=== PATIENT | male | born 1965 | race Caucasian/White ===

== ENCOUNTER → 2024-03-21 | Outpatient (CLI) | payer MEDICARE, SELFPAY ==
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
--- NOTE | 2024-03-21 15:00 | XR_ITS ---
Examination: CT chest, without intravenous contrast. Sagittal and coronal 2-D reconstructions. Exam date and time: March 21, 2024 1529 hours Comparison August 07, 2023 INDICATIONS: Smoking history 50 years, tiny nodules in the left lung, the largest 3 mm CTDI:vol (mGy) 11 DLP: (mGycm) 417 Technique: Multiple 3.0 mm axial sections of the chest to been obtained. Bone and lung density settings are obtained. Sagittal and coronal 2-D reconstructions have been obtained. Low dose protocols were performed. One or more of the following dose reduction techniques were used; automated exposure control, adjustment of the mA and/or KV according to patient size, use of iterative reconstruction technique. Findings: No thoracic aortic aneurysm dilatation Pulmonary artery segments are not enlarged Mild calcification left anterior descending left circumflex coronary arteries No pulmonary nodules on the current study No pneumonia or pulmonary edema or pleural disease No liver or splenic lesion Contracted gallbladder No pancreatic or adrenal mass IMPRESSION: No pulmonary nodules on the current study
== END | disposition home or self-care (01) ==
LOC: CCTX 14:50
PROVIDERS: PCP Family Medicine; Referring Provider Specialist; Visit Provider Specialist
DX: F03.90 Unspecified dementia, unspecified severity, without behavioral disturbance, psychotic disturbance, mood disturbance, and anxiety (principal); R41.3 Other amnesia; F17.200 Nicotine dependence, unspecified, uncomplicated
CPT/HCPCS: 70450; 71250

== ENCOUNTER → 2024-05-05 | Outpatient (CLI) | payer MEDICARE, SELFPAY ==
--- NOTE | 2024-05-05 12:00 | XR_ITS ---
Examination: Ultrasound abdominal aorta TECHNIQUE: High-resolution grayscale sonographic images abdominal aorta Exam date and time: May 05, 2024 1157 hours INDICATIONS: Smoking history 45 years FINDINGS: Transverse dimension proximal aorta 2 cm, mid aorta 1.9 cm Distal aorta 1.8 cm Left iliac artery 1.2 cm right iliac artery 0.9 cm IMPRESSION:: Negative for abdominal aortic aneurysm
--- NOTE | 2024-05-05 12:30 | XR_ITS ---
Examination: Bone densitometry Date and time of exam:May 05, 2024 1222 hours INDICATIONS: 59-year-old male with diagnosis age related osteoporosis Technique: Lumbar spine and hip total bone mineralization values of an calculated. Peak reference and age match control results have been displayed. Findings: Lumbar spine total bone mineralization is1.360 gm/cm2. This is 2.4 standard deviations above peak reference. This is 3.1 standard deviations above age-matched controls. Hip total bone mineralization is 1.035 gm/cm2 This is 0.0 standard deviations at peak reference. This is 0.5 standard deviations above age-matched controls Impression: There is normal mineralization based on lumbar spine measurements. There is normal mineralization based on hip measurements
== END | disposition home or self-care (01) ==
PROVIDERS: PCP Family Medicine; Referring Provider Family Medicine; Visit Provider Family Medicine
DX: M81.0 Age-related osteoporosis without current pathological fracture (principal); Z87.891 Personal history of nicotine dependence
CPT/HCPCS: 76770; 77080

== ENCOUNTER → 2024-07-31 | Outpatient (CLI) | payer MEDICARE, SELFPAY ==
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
== END | disposition home or self-care (01) ==
LOC: SCAT 10:38
PROVIDERS: PCP Family Medicine; Referring Provider Family Medicine; Visit Provider Family Medicine
DX: M50.31 Other cervical disc degeneration, high cervical region (principal)
CPT/HCPCS: 72125